=== PATIENT | male | born 1955 | race Hispanic/Latino ===

== ENCOUNTER 2019-09-15 15:48 | Emergency (ER) | payer BC ==
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
[2019-09-15] MEDS ORDERED: Ketorolac Tromethamine 30 MG/ML VIAL ONE (16:38)
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
== END 2019-09-15 17:52 | disposition short-term general hospital (02) ==
LOC: ERS 15:48
DX: S20.219A Contusion of unspecified front wall of thorax, initial encounter (principal); E78.5 Hyperlipidemia, unspecified; E78.00 Pure hypercholesterolemia, unspecified; F41.9 Anxiety disorder, unspecified; F32.9 Major depressive disorder, single episode, unspecified; G47.00 Insomnia, unspecified; Z79.899 Other long term (current) drug therapy; V89.2XXA Person injured in unspecified motor-vehicle accident, traffic, initial encounter
CPT/HCPCS: 70450; 71045; 72125; 96372; J1885